=== PATIENT | male | born 1960 | race African-American/Black ===

== ENCOUNTER 2023-04-14 11:35 | Emergency (ER) | payer OTHER ==
[2023-04-14] MEDS ORDERED: Pantoprazole 40 MG VIAL ONE (13:14)
[2023-04-14] MEDS ORDERED: Ketorolac Tromethamine 30 MG/ML VIAL ONE (13:14)
[2023-04-14] MEDS ORDERED: Sodium Chloride 0.9% 100 ML ONE (13:14)
[2023-04-14] MEDS ORDERED: Iopamidol 300 61% 100 ML VIAL FS ONE (13:30)
[2023-04-14] MEDS ORDERED: Lidocaine 2% Viscous Solution 10 ML, Aluminum & Magnesium Hydroxide 30 ML SSW SCH (13:30)
[2023-04-14 13:53] LABS: #Basophils 0.1 10x3/uL (0.0-0.2); #Eosinphils 0.1 10x3/uL (0.0-0.5); #Monocytes 0.5 10x3/uL (0.0-1.1); #Neutrophils 3.5 10x3/uL (1.5-8.4); %Basophils 0.7 % (0.0-2.0); %Eosinophils 1.3 % (0.0-6.0); %Lymphocytes 43.9 % (18.0-47.0); %Monocytes 6.7 % (0.0-10.0); %Neutrophils 47.3 % (40.0-75.0); Hemoglobin 14.7 g/dL (13.5-17.5); Mean Corpuscular Hemoglobin 29.2 pg (27.0-33.0); Mean Corpuscular Volume 83.3 fl (81.2-95.1); Mean Platelet Volume 11.9 fl (7.4-10.4); Platelet Count 196 10x3/uL (150-450); RBC Distribution Width 12.2 % (11.5-14.5); Red Blood Cell (RBC) Count 5.04 10x6/uL (4.32-5.72); White Blood Cell (WBC) Count 7.4 10x3/uL (3.5-10.5)
[2023-04-14 14:01] LABS: ALT (SGPT) 9 U/L (8-55); AST (SGOT) 12 U/L (5-34); Albumin 4.2 g/dL (3.4-4.8); Alkaline Phosphatase 109 U/L (40-110); Anion Gap 13 mmol/L (10-20); BUN (Urea Nitrogen) 14 mg/dL (8.4-25.7); Bilirubin, Total 0.6 mg/dL (0.2-1.2); Calc. Creatinine Clearance 0 mL/min (70-130); Calcium 10.2 mg/dL (7.8-10.44); Carbon Dioxide 29 mmol/L (23-31); Chloride 104 mmol/L (98-107); Estimated GFR 86; Glucose 174 mg/dL (80-115); Lipase 12 U/L (8-78); Potassium 4.8 mmol/L (3.5-5.1); Protein, Total 7.2 g/dL (5.8-8.1); Sodium 141 mmol/L (136-145)
== END 2023-04-14 18:04 | disposition home or self-care (01) ==
LOC: CSHERS 11:35 → EEVIPCON 11:35 → CSHERS 18:04
DX: K21.9 Gastro-esophageal reflux disease without esophagitis (principal); K59.00 Constipation, unspecified; K86.89 Other specified diseases of pancreas
CPT/HCPCS: 74177; 80053; 83690; 84484; 85025; 93005; 96374; 96375; C9113; J1885; J3490; Q9967